=== PATIENT | female | born 1990 | race Caucasian/White ===

== ENCOUNTER 2016-09-16 15:28 | Emergency (ER) | payer OTHER ==
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
== END 2016-09-16 15:35 | disposition home or self-care (01) ==
LOC: CED 15:28
DX: S00.93XA Contusion of unspecified part of head, initial encounter (principal); S80.01XA Contusion of right knee, initial encounter; V49.40XA Driver injured in collision with unspecified motor vehicles in traffic accident, initial encounter
CPT/HCPCS: 70450; 72040; 84703; 99284